=== PATIENT | female | born 1970 | race Caucasian/White ===

== ENCOUNTER → 2020-11-06 | Outpatient (CLI) | payer BC ==
[~2020-11-06] MED LIST: AIMOVIG AU70 MG/1 ML SQ; KLONOPIN1 MG PO; NEXIUM40 MG PO; PAXIL10 MG PO; REGLAN10 MG PO; TOPAMAX50 MG PO; VITAMIN D35000 UNI1 PO; ZANTAC150 MG PO
== END ==
LOC: RAD 15:28
DX: R07.89 Other chest pain (principal); R05 Cough
CPT/HCPCS: 71046

== ENCOUNTER → 2021-05-27 | Outpatient (CLI) | payer BC | LOC: EMI 10:14 | DX: G43.919 Migraine, unspecified, intractable, without status migrainosus (principal) | CPT/HCPCS: 70551 ==

== ENCOUNTER 2021-06-05 08:52 | Emergency (ER) | payer BC ==
[~2021-06-05] VITALS: Ht 160 cm; Wt 72.6 kg
[2021-06-05 09:45] LABS: HEMOGLOBIN 12.2 gm/dl (12.3-15.3); RED BLOOD COUNT 3.79 M/UL (4.00-5.10); WHITE BLOOD COUNT 4.1 K/UL (4.5-11.0)
[2021-06-05 10:03] LABS: BUN/CREATININE RATIO 5 (0-10)
== END 2021-06-05 13:05 | disposition home or self-care (01) ==
LOC: ER1 08:52
PROVIDERS: Student in an Organized Health Care Education/Training Program
DX: Z23 Encounter for immunization (principal); U07.1 COVID-19; I10 Essential (primary) hypertension; F17.210 Nicotine dependence, cigarettes, uncomplicated; Z90.49 Acquired absence of other specified parts of digestive tract; Z90.89 Acquired absence of other organs; Z88.2 Allergy status to sulfonamides; Z88.0 Allergy status to penicillin
CPT/HCPCS: 36600; 71045; 80053; 82550; 82553; 82803; 83874; 84484; 84702; 85025; 93005; 99285; M0243

== ENCOUNTER → 2022-05-24 | Day surgery (SDC) | payer BC ==
[~2022-05-24] MED LIST changes: +TIZANIDINE HCL2 MG PO
== END | disposition home or self-care (01) ==
LOC: OR 06:26
DX: K58.2 Mixed irritable bowel syndrome (principal); K63.5 Polyp of colon; K57.30 Diverticulosis of large intestine without perforation or abscess without bleeding; K64.0 First degree hemorrhoids; K64.4 Residual hemorrhoidal skin tags; I10 Essential (primary) hypertension; E66.3 Overweight; K21.9 Gastro-esophageal reflux disease without esophagitis; F17.200 Nicotine dependence, unspecified, uncomplicated; Z68.29 Body mass index [BMI] 29.0-29.9, adult; Z80.0 Family history of malignant neoplasm of digestive organs; Z88.0 Allergy status to penicillin; Z88.2 Allergy status to sulfonamides
CPT/HCPCS: J2704; J7040